=== PATIENT | male | born 1940 | race Caucasian/White ===

== ENCOUNTER 2017-04-23 06:20 | Inpatient (IN) ==
[2017-04-23] MEDS ORDERED: CeFAZolin Pre 2,000 MG/100 ML 2,000 MG/100 ML BAG IVPB ONE (06:38)
[2017-04-23] MEDS ORDERED: Ringers Solution, Lactated 1,000 ML IVC SCH ×2 (06:45→09:45)
[2017-04-23] MEDS ORDERED: *HR* FentaNYL (PF) 100 MCG/2 ML VIAL ONE (07:06)
[2017-04-23] MEDS ORDERED: *HR* Propofol 200 MG/20 ML VIAL IVP ONE ×2 (07:06→13:00)
[2017-04-23] MEDS ORDERED: *HR* Rocuronium Bromide 50 MG/5 ML VIAL ONE (07:07)
[2017-04-23] MEDS ORDERED: EPHEDrine 50 MG/ML VIAL ONE (07:07)
[2017-04-23] MEDS ORDERED: *HR* Succinylcholine 200 MG/10 ML VIAL IVP ONE (07:07)
[2017-04-23] MEDS ORDERED: Lidocaine -MPF 4% 5 ML AMPUL ONE (07:07)
[2017-04-23] MEDS ORDERED: Lidocaine -MPF 2% 2 ML VIAL ONE (07:07)
[2017-04-23] MEDS ORDERED: *HR* Phenylephrine 10 MG/ML VIAL ONE (07:07)
[2017-04-23] MEDS ORDERED: *HR* Remifentanil 1 MG VIAL IVP ONE ×2 (07:08→10:00)
[2017-04-23] MEDS ORDERED: Gabapentin 300 MG CAPSULE PO ONE (07:21)
[2017-04-23] MEDS ORDERED: Famotidine 20 MG/2 ML VIAL IVP ONE (07:21)
[2017-04-23] MEDS ORDERED: Acetaminophen IV 1,000 MG/100 ML INFUS..BTL IVPB ONE (07:21)
[2017-04-23] MEDS ORDERED: Heparin 1,000 UNITS/500 mL NS 500 ML ONE (07:39)
--- NOTE | 2017-04-23 07:39 | History & Physical Report ---
Date of Encounter: 04/23/17 Time of Encounter: 07:38 24 Hour HP Update - Instructions Instructions: If the History and Physical is less than 30 days old and was completed prior to A.M. admission and or procedure and has NOT been updated on calendar day of procedure please complete this update prior to performing procedure. - Update Patient reports changes in Medical Condition: No Changes in examination, assessment, or condition: No Changes in Medication: No Preop tests/diagnostics Reviewed: Yes Pre-Op MRSA Screen: Negative Surgery Remains Indicated: Yes Consent for Planned Operative Procedure(s) Verified: Yes - Pre-Operative Checklist Preoperative Checklist Indicated: No Prophylactic Antibiotic Ordered: Yes Home Medications Include Beta Vitaliy: Yes Beta Vitaliy Taken Today (Day of Surgery): No Beta Vitaliy Taken Yesterday (Day Prior to Surgery): Yes Is VTE Prophylaxis Indicated?: Yes
--- NOTE | 2017-04-23 07:41 | Anesthesia Evaluation PreOp ---
Date of Encounter: 04/23/17 Time of Encounter: 07:30 - Past History Planned Operation: Posterior Lumbar Interbody Fusion Cardiac History: [place] (CAD), HTN, Hyperlipidemia, Cardiac Surgery (CABG X2), Other (, PAD) Pulmonary History: Former smoker, JENNIFER Dx (non compliant with CPAP) JBOSS ARCHITECT History: TIA (s/p Left CEA) Other Medical History: Diabetes Type II, GERD Anesthesia History: Past Anesthesia, Problems (Post op temperature spike) Alcohol Use: none Drug use: none Medications and Allergies Gabapentin [Neurontin] 300 mg PO TID 06/04/15 [History] Losartan [Cozaar] 50 mg PO BID 06/04/15 [History] Metformin [Glucophage] 1,000 mg PO BIDWM 06/04/15 [History] Omeprazole [PriLOSEC] 40 mg PO DAILY 06/04/15 [History] Ubidecarenone [Co Q-10] 100 mg PO DAILY 06/04/15 [History] Acetaminophen [Tylenol Arthritis] 650 mg PO QPM 05/20/16 [History] Aspirin Enteric Coated [Aspirin EC] 81 mg PO DAILY 05/20/16 [History] Cholecalciferol (D-3) [Vitamin D] 5,000 unit PO DAILY 05/20/16 [History] Docusate [Colace] 100 mg PO BID PRN 04/14/17 [History] Glimepiride [Amaryl] 2 mg PO 0800 04/14/17 [History] Nitroglycerin 0.4 mg SL Q5MIN 04/14/17 [History] Rosuvastatin Calcium [Crestor] 10 mg PO Q48H 04/14/17 [History] Carvedilol 3.125 mg PO BID 04/23/17 [History] Lipoflavonoid 3 tab PO DAILY PRN 04/23/17 [History] Allergies ibuprofen [From Motrin] Allergy (Verified 04/23/17 07:20) Hives Oxycodone Adverse Reaction (Severe, Verified 04/23/17 07:20) See Comments suicidal ideation fish oil Adverse Reaction (Unknown, Verified 04/23/17 07:20) BRAIN BLEED atorvastatin [From Lipitor] Adverse Reaction (Verified 04/23/17 07:20) Muscle Pain Fjkfbrg-Twl-Eoa Reductase Inhibitor [Statins] Adverse Reaction (Verified 07:20) Muscle Pain - Meds/Allergy Pre-op Review Medications Reviewed: Yes Allergies Reviewed: Yes Beta Blockers on Current Med List: Yes (Coreg today 0500) Anesthesia Results - Labs Laboratory Tests 04/10/17 04/10/17 11:05 11:05 Hgb 13.2 Hct 39.0 Plt Count 260 Sodium 140 Potassium 4.4 BUN 20 Creatinine 0.99 - Imaging EKG: report reviewed (SR occ PSVT) Additional studies: Heart Cath LVEF 60% Anesthesia Exam O2 Sat Height 1.73 m Height 1.73 m Height 1.73 m Weight 92.079 kg Weight 92.079 kg Weight 92.079 kg O2 Sat by Pulse Oximetry 97 Vital Signs Temp Pulse Resp BP Pulse Ox 98.2 F 69 18 158/85 97 04/23/17 06:38 04/23/17 06:38 04/23/17 06:38 04/23/17 06:38 04/23/17 06:38 Height: 5'8 Weight: 203 lbs NPO (# of Hours): MN Pain Scale: 0 - HEENT Pupil (Motor): Pupils equal, EOMI Mallampati: III Denture Type: Upper: Complete Oral Opening: Less than or equal to 3 - JBOSS ARCHITECT LOC: Oriented JBOSS ARCHITECT Motor: Normal RUE, Normal LUE, Normal RLE, Normal LLE, Normal Face JBOSS ARCHITECT Sensory: Normal: RUE, LUE, RLE, LLE, Face - Cardiac Rhythm: Regular Murmur: None JVD: No Carotid Bruit: No - Pulmonary Breath Sounds: bilateral Clear Respiratory Effort: Symmetrical Anesthesia Assess/Plan ASA Score: 3 (CAD HTN) Modified [place] Scale for Level of Consciousness: Cooperative, oriented, and tranquil Anesthetic Plan: General Monitoring Plan: Standard Monitors, A-Line Recovery Plan: PACU (Discussed GA, A-line agrees to proceed)
[2017-04-23] MEDS ORDERED: NiCARdipine 2.5 MG/10 ML Syringe IVPB ONE (08:31)
[2017-04-23] MEDS ORDERED: Naloxone 0.4 MG/ML INJ IVP PRN ×2 (09:45→15:25)
[2017-04-23] MEDS ORDERED: *HR* Meperidine 25 MG/ML SYRINGE IVP PRN (09:45)
[2017-04-23] MEDS ORDERED: Albuterol 2.5 MG/3 ML NEBULIZER IH ONE (09:45)
[2017-04-23] MEDS ORDERED: Ondansetron 4 MG/2 ML VIAL IVP ONE (09:45)
[2017-04-23] MEDS ORDERED: Ondansetron 4 MG/2 ML VIAL ONE (10:31)
[2017-04-23] MEDS ORDERED: Dexamethasone 4 MG/ML VIAL ONE (10:31)
[2017-04-23] MEDS ORDERED: Propofol 500 MG/50 ML INFUS..BTL ONE (11:07)
--- NOTE | 2017-04-23 13:03 | Orthopedic Operative Note ---
Date of procedure: 04/23/17 Pre-op diagnosis: Spondylolisthesis, lumbar stenosis, lumbar radiculopathy Post-op diagnosis: same Operation/Findings: Posterior lumbar interbody fusion L3-S1: The patient successfully underwent general endotracheal anesthesia. The patient was given antibiotics prior to the start of the procedure. Compression boots and stockings were used for deep vein thrombosis prophylaxis. A Condon catheter was placed. Leads for neuro monitoring were placed on the upper and lower extremities. This included the cranium. The neuro monitoring personnel confirmed there were satisfactory readings prior to the start of the procedure. The patient was turned prone on the Donn table. The back was prepped and draped in the usual sterile fashion. An incision was was marked and centered over the involved L3-S1 levels in the mid line. The incision was deepened through the lumbar fascia. Bovie cautery and Wang elevators were used to reflect the paraspinal musculature at the lateral extent of the transverse processes of the involved L3 , L4, L5, and S1 levels. Yvrose clamps were placed over the L4 and L5 spinous processes. An intraoperative lateral fluorograph was obtained. A conversation was held between the surgeon and radiologist and both confirmed we had the correct operative levels. We then placed pedicle screws in standard fashion with the aid of fluoroscopy and anatomic landmarks. Briefly a starter awl was used. A gearshift was subsequently used to enter the engine pilot hole via a transpedicular route into the vertebral body. The engine pilot hole was tapped with an undersized instrument, and subsequently seven 6.5 x 40 mm pedicle screws were placed bilaterally at L2, L3, and S1 levels. One pedicle screw was placed at the L5 level due to concerns of screw placement. The screws were tested with the aid of the neurologic monitoring staff via pedicle screw stimulation. All reading suggested there was no significant cortical wall breech. The screws were also evaluated fluoro- graphically and appeared to be in satisfactory position. We then turned our attention to the decompression portion of the procedure. We removed the supraspinous and interspinous ligaments and subsequently the insertion of the ligamentum flavum on the undersurface of the proximal L5 lamina was dislodged with a curette. We then removed the ligamentum flavum as well as undercut the f L5-S1 acets at this level to decompress the lateral recesses. We also performed a L5 laminectomy. After the decompression which was over and above that which was required to place the interbody graft, the foramen and traversing roots at this level were found to be free and patent. We also took part of the L5-S1 medial facet in order to aid in the decompression. We proceeded proximally with these compression to the L4-5 and L3-4 levels. This included removing all intervening ligamentum flavum, undercutting the facets at the L3-4 and L4-5 levels, performing laminectomies of L4 and L3, and doing partial medial facetectomies at the L3-4 and L4-5 levels. We checked the foramen and traversing roots at L3-4 and L4-5 and L5-S1 and they were found to be free and patent after the decompression. We then protected the neural elements including the thecal sac and traversing nerve root on the right at L4-5 with a dural retractor. We made an annulotomy into the L4-5 disc space and then removed entire disc material using Pituitary instruments. We trialed various size grafts after the L4 and L5 endplates were prepared for graft insertion. an 8 x 26 enter body graft fit well within the L4-L5 disc space. We obtained some bone from the right posterior superior iliac spine through us a separate incision and combined with this with the bone which we had saved from the laminectomy of L3, L4, and L5 portion of the procedure. This autograft bone was first placed in the anterior portion of the L4-L5 disc space and additional bone was placed within the interbody graft spacer. We then placed the interbody graft spacer obliquely across the L4-L5 disc space towards the midline while protecting the neural elements with a root retractor. When the graft was found to be in satisfactory position the windows security engineer was removed. We then copiously irrigated the wound. We then decorticated the transverse processes of L3, L4, L5 and S1 as well as the L3-4, L4-5, and L5-S1 facet joints of the involved levels to aid in the posterolateral fusion. We placed autograft bone in the lateral gutters over these L3-S1 regions. We then placed rods within the screw heads of the involved L3, L4, L5 and S1 levels and first locked the distal screws and then subsequently locked the proximal screws so as to improve and reduce the spondylolisthesis previously seen. We then closed the wound in layers with 1 Vicryl for the fascia, 2-0 Vicryl. Subcutaneous tissue, and Dermabond was used for skin closure. Sterile dressings were placed over the wound. The patient was turned supine on a hospital bed and extubated. All sponge instruments and needle counts were correct at the end of the procedure. The patient tolerated the procedure well without complications. Anesthesia: JESSICA Surgeon: Nick Haynes Jr Estimated blood loss (cc): 900 Condition: stable Disposition: PACU
[2017-04-23] MEDS ORDERED: *HR* HYDROcodone/Acet 10/325 mg TABLET PO PRN (13:08)
[2017-04-23] MEDS: *HR* HYDROmorphone (PF) 1 MG/ML SYRINGE IVP PRN ×4 (13:25→13:45)
[2017-04-23] MEDS: *HR* Labetalol 20 MG/4 ML SYRINGE IVP PRN ×2 (13:55→14:00)
--- NOTE | 2017-04-23 14:28 | Anesthesia Evaluation Post Op ---
Date of Encounter: 04/23/17 Time of Encounter: 14:25 - Vital Signs Vital Signs: Vital Signs/O2 Sat/Glucose, Most Current Temp Pulse Resp BP Pulse Ox 04/23/17 14:23 87 16 161/91 97 04/23/17 14:13 98.2 F 83 16 166/91 97 04/23/17 14:03 63 16 161/82 97 04/23/17 13:53 93 16 182/93 97 04/23/17 13:43 98 F 93 16 174/87 98 04/23/17 13:33 94 16 162/100 96 04/23/17 13:23 96 16 157/82 95 04/23/17 13:13 98.4 F 91 16 172/106 100 - Lungs Lungs: Clear Ascult./Percussion - Airway Airway: Non-obstructed - Cardiovascular Regular Rate - Mental Status Mental Status: Alert & Oriented, Answers Appropriately - Pain Pain Scale: 1 - Nausea Vomiting Nausea Vomiting: Not Present - Hydration Hydration: Ice chips - Discharge PostOp Status: Transfer Patient to floor
[2017-04-23] MEDS ORDERED: Ondansetron 4 MG/2 ML VIAL IVP PRN (15:25)
[2017-04-23] MEDS ORDERED: Nitroglycerin 0.4 MG TAB.SUBL SL PRN (15:30)
[2017-04-23] MEDS: ceFAZolin 2,000 MG in D5% in Water 100 ML IVPB SCH (16:17)
[2017-04-23] MEDS: Ringers Solution, Lactated 1,000 ML IVC SCH (16:18)
[2017-04-23] MEDS: *HR* Metformin 500 MG TABLET PO SCH (17:17)
[2017-04-23] MEDS: Acetaminophen 325 MG TABLET PO SCH (17:17)
[2017-04-23] MEDS: *HR* HYDROcodone/Acet 10/325 mg TABLET PO PRN (19:06)
[2017-04-23] MEDS: *HR* Morphine 2 MG/ML SYRINGE IVP PRN (21:34)
[2017-04-24] MEDS: Ringers Solution, Lactated 1,000 ML IVC SCH (00:21)
[2017-04-24] MEDS: ceFAZolin 2,000 MG in D5% in Water 100 ML IVPB SCH (00:22)
[2017-04-24] MEDS: *HR* HYDROcodone/Acet 10/325 mg TABLET PO PRN ×5 (00:56→23:20)
[2017-04-24 06:13] LABS: Basophils % 0.3 %; Hematocrit 35.7 % (37.5-50.1); Hemoglobin 11.7 g/dL (12.9-16.9); Immature Granulocytes % 0.7 % (0-4); Lymphocytes # 1.5 K/mcL (0.6-4.6); Lymphocytes % 9.5 %; Mean Corpuscular HGB Conc 32.8 g/dL (31.6-35.5); Mean Corpuscular Hemoglobin 31.1 pg (28.0-33.3); Mean Corpuscular Volume 94.9 fL (83.0-100.0); Mean Platelet Volume 10.3 fL (9.4-12.4); Monocytes # 1.4 K/mcL (0.0-1.3); Neutrophils # 12.7 K/mcL (1.6-8.9); Platelet Count 250 K/mcL (140-400); Red Blood Count 3.76 M/mcL (4.19-5.50); Red Cell Distribution Width 13.7 % (11.5-14.5); Segmented Neutrophils % 80.5 %
[2017-04-24 06:51] LABS: BUN/Creatinine Ratio 14 (6-26); Blood Urea Nitrogen 14 mg/dL (8-26); Carbon Dioxide 26 mEq/L (19-29); Chloride 100 mEq/L (98-109); Glucose 224 mg/dL (70-99); Osmolality,Calculated 287 (280-300); Potassium 4.3 mEq/L (3.5-4.5); Sodium 135 mEq/L (136-145); eGFR For African Americans > 60 (> 60); eGFR For Non-African Americans > 60 (> 60)
[2017-04-24] MEDS: *HR* Metformin 500 MG TABLET PO SCH ×2 (07:34→16:48)
[2017-04-24] MEDS: *HR* Glimepiride 2 MG TABLET PO SCH (07:35)
[2017-04-24] MEDS: Aspirin Enteric Coated 81 MG Tablet PO SCH (07:36)
[2017-04-24] MEDS: Cholecalciferol (D-3) 1,000 UNIT TABLET PO SCH (07:36)
[2017-04-24] MEDS: (Ubidecarenone [Co Q-10] 100 MG) PO SCH (07:37)
--- NOTE | 2017-04-24 11:21 | Orthopedics Progress Note ---
<Dina Lopez E - Last Filed: 04/24/17 11:22> Date of Encounter: 04/24/17 Time of Encounter: 11:20 - Assessment and Plan (1) Status post lumbar spinal fusion Current Visit: Yes Status: Acute (2) Spondylolisthesis Current Visit: Yes Status: Chronic Qualifiers: Spinal region: unspecified Qualified Code(s): M43.10 - Spondylolisthesis, site unspecified (3) Lumbar stenosis Current Visit: Yes Status: Chronic (4) Lumbar radiculopathy Current Visit: Yes Status: Chronic Subjective Principal diagnosis: low back and leg pain Interval history: POD#1 Posterior lumbar interbody fusion L3-S1 performed on 04/23/[address] Haynes for Spondylolisthesis, lumbar stenosis, lumbar radiculopathy. PT recommending home with family. Objective Vital signs: Vital Signs Temp Pulse Resp BP Pulse Ox 04/24/17 11:16 98.6 F 82 14 145/78 97 04/24/17 07:04 97.5 F L 86 16 147/81 98 04/24/17 00:34 97.9 F 88 16 144/70 96 04/23/17 21:53 97.8 F 92 16 143/76 95 04/23/17 18:24 98.3 F 92 16 120/69 95 04/23/17 17:24 97.6 F 81 16 149/81 98 04/23/17 16:01 98.4 F 92 18 144/79 94 04/23/17 16:00 98.4 F 92 18 144/79 94 04/23/17 15:30 98.1 F 80 18 150/83 94 04/23/17 14:45 98.1 F 78 16 161/93 98 04/23/17 14:23 87 16 161/91 97 04/23/17 14:13 98.2 F 83 16 166/91 97 04/23/17 14:03 63 16 161/82 97 04/23/17 13:53 93 16 182/93 97 04/23/17 13:43 98 F 93 16 174/87 98 04/23/17 13:33 94 16 162/100 96 04/23/17 13:23 96 16 157/82 95 04/23/17 13:13 98.4 F 91 16 172/106 100 Intake and Output 04/23/17 04/24/17 04/24/17 23:59 07:59 15:59 Intake Total 100 / 100 1225 / 1225 480 / 480 Output Total 800 / 800 1250 / 1250 Balance -700 / -700 -25 / -25 480 / 480 Intake: IV Fluids 100 / 100 1000 / 1000 Lactated Ringers 1,000 ML 1000 / 1000 @ 100 mls/hr IVC .Q10H CHIN Rx#:[id number] Ancef 2,000 MG In 100 / 100 Dextrose 5% 100 ML @ 200 mls/hr IVPB Q8HR CHIN Rx#: [id number] Oral 225 / 225 480 / 480 Output: Catheter 800 / 800 1250 / 1250 Other: Blood Glucose* 273 232 232 - Labs CBC & BMP: 04/24/17 04:55 04/24/17 04:55 Labs: Abnormal lab results WBC 15.8 K/mcL (4.3-11.1) H 04/24/17 04:55 RBC 3.76 M/mcL (4.19-5.50) L 04/24/17 04:55 Hgb 11.7 g/dL (12.9-16.9) L 04/24/17 04:55 Hct 35.7 % (37.5-50.1) L 04/24/17 04:55 Neutrophils # 12.7 K/mcL (1.6-8.9) H 04/24/17 04:55 Monocytes # 1.4 K/mcL (0.0-1.3) H 04/24/17 04:55 Sodium 135 mEq/L (136-145) L 04/24/17 04:55 Glucose 224 mg/dL (70-99) H 04/24/17 04:55 POC Glucose 273 (58-89) H 04/23/17 20:27 - VTE Documentation of Mechanical Device: Intermittent pneumatic compression device Consult Discharge Plan - Plan Referrals: Jamir Whitfield MD [Primary Care Provider] - <Nick Haynes Jr - Last Filed: 04/24/17 12:24> Date of Encounter: 04/24/17 Subjective Interval history: The patient is without complaints. Afebrile vital signs are stable. Incision is clean dry and intact. Neurovascularly intact with regard to bilateral lower extremities. Fires all upper and lower extremity motor groups. . Assessment : stable. Plan mobilize ,continue analgesics, discharge planning. Objective Vital signs: Vital Signs Temp Pulse Resp BP Pulse Ox 04/24/17 11:16 98.6 F 82 14 145/78 97 04/24/17 07:04 97.5 F L 86 16 147/81 98 04/24/17 00:34 97.9 F 88 16 144/70 96 04/23/17 21:53 97.8 F 92 16 143/76 95 04/23/17 18:24 98.3 F 92 16 120/69 95 04/23/17 17:24 97.6 F 81 16 149/81 98 04/23/17 16:01 98.4 F 92 18 144/79 94 04/23/17 16:00 98.4 F 92 18 144/79 94 04/23/17 15:30 98.1 F 80 18 150/83 94 04/23/17 14:45 98.1 F 78 16 161/93 98 04/23/17 14:23 87 16 161/91 97 04/23/17 14:13 98.2 F 83 16 166/91 97 04/23/17 14:03 63 16 161/82 97 04/23/17 13:53 93 16 182/93 97 04/23/17 13:43 98 F 93 16 174/87 98 04/23/17 13:33 94 16 162/100 96 04/23/17 13:23 96 16 157/82 95 04/23/17 13:13 98.4 F 91 16 172/106 100 Intake and Output 04/23/17 04/24/17 04/24/17 23:59 07:59 15:59 Intake Total 100 / 100 1225 / 1225 480 / 480 Output Total 800 / 800 1250 / 1250 Balance -700 / -700 -25 / -25 480 / 480 Intake: IV Fluids 100 / 100 1000 / 1000 Lactated Ringers 1,000 ML 1000 / 1000 @ 100 mls/hr IVC .Q10H CHIN Rx#:[id number] Ancef 2,000 MG In 100 / 100 Dextrose 5% 100 ML @ 200 mls/hr IVPB Q8HR CHIN Rx#: [id number] Oral 225 / 225 480 / 480 Output: Catheter 800 / 800 1250 / 1250 Other: Blood Glucose* 273 232 232 - Labs CBC & BMP: 04/24/17 04:55 04/24/17 04:55 Labs: Abnormal lab results WBC 15.8 K/mcL (4.3-11.1) H 04/24/17 04:55 RBC 3.76 M/mcL (4.19-5.50) L 04/24/17 04:55 Hgb 11.7 g/dL (12.9-16.9) L 04/24/17 04:55 Hct 35.7 % (37.5-50.1) L 04/24/17 04:55 Neutrophils # 12.7 K/mcL (1.6-8.9) H 04/24/17 04:55 Monocytes # 1.4 K/mcL (0.0-1.3) H 04/24/17 04:55 Sodium 135 mEq/L (136-145) L 04/24/17 04:55 Glucose 224 mg/dL (70-99) H 04/24/17 04:55 POC Glucose 273 (58-89) H 04/23/17 20:27
[2017-04-24] MEDS ORDERED: Temazepam 15 MG CAPSULE PO PRN (12:38)
[2017-04-24] MEDS: *HR* Morphine 2 MG/ML SYRINGE IVP PRN ×2 (12:46→16:58)
[2017-04-24] MEDS: Acetaminophen 325 MG TABLET PO SCH (16:49)
[2017-04-24] MEDS: Gabapentin 300 MG CAPSULE PO SCH (21:12)
[2017-04-25] MEDS: *HR* HYDROcodone/Acet 10/325 mg TABLET PO PRN ×3 (05:05→16:27)
[2017-04-25] MEDS: Aspirin Enteric Coated 81 MG Tablet PO SCH (09:11)
[2017-04-25] MEDS: Cholecalciferol (D-3) 1,000 UNIT TABLET PO SCH (09:11)
[2017-04-25] MEDS: *HR* Metformin 500 MG TABLET PO SCH ×2 (09:12→16:28)
[2017-04-25] MEDS: Gabapentin 300 MG CAPSULE PO SCH ×3 (09:12→22:47)
[2017-04-25] MEDS: *HR* Glimepiride 2 MG TABLET PO SCH (09:14)
[2017-04-25] MEDS: (Ubidecarenone [Co Q-10] 100 MG) PO SCH (09:16)
--- NOTE | 2017-04-25 12:44 | Spine Progress Note ---
Date of Encounter: 04/25/17 Time of Encounter: 12:43 Subjective Principal diagnosis: low back and leg pain Interval history: The patient is without complaints. Afebrile vital signs are stable. Incision is clean dry and intact. Neurovascularly intact with regard to bilateral lower extremities. Fires all upper and lower extremity motor groups. . Assessment : stable. Plan mobilize ,continue analgesics, discharge planning, radiographs satisfactory. Objective Vital signs: Vital Signs Temp Pulse Resp BP Pulse Ox 04/25/17 10:00 98.5 F 101 16 134/76 99 04/25/17 06:51 98.4 F 104 16 129/78 98 04/25/17 04:57 98.0 F 110 14 135/74 96 04/25/17 01:11 98.8 F 107 15 112/61 04/24/17 15:20 99.5 F 100 16 113/62 96 Intake and Output 04/24/17 04/25/17 04/25/17 23:59 07:59 15:59 Intake Total 0 / 0 Balance 0 / 0 Intake: Oral 0 / 0 Other: Weight 96 kg Blood Glucose* 171 225 293 Patient Weight 04/25/17 23:59 Weight 96 kg - Labs CBC & BMP: 04/24/17 04:55 04/24/17 04:55 Labs: Abnormal lab results WBC 15.8 K/mcL (4.3-11.1) H 04/24/17 04:55 RBC 3.76 M/mcL (4.19-5.50) L 04/24/17 04:55 Hgb 11.7 g/dL (12.9-16.9) L 04/24/17 04:55 Hct 35.7 % (37.5-50.1) L 04/24/17 04:55 Neutrophils # 12.7 K/mcL (1.6-8.9) H 04/24/17 04:55 Monocytes # 1.4 K/mcL (0.0-1.3) H 04/24/17 04:55 Sodium 135 mEq/L (136-145) L 04/24/17 04:55 Glucose 224 mg/dL (70-99) H 04/24/17 04:55 POC Glucose 211 (58-89) H 04/24/17 21:00 Consult Discharge Plan - Plan Referrals: Jamir Whitfield MD [Primary Care Provider] -
--- NOTE | 2017-04-25 12:50 | Discharge Summary ---
Date of Encounter: 04/25/17 Time of Encounter: 12:44 - Discharge Medications Prescriptions: HYDROcodone/Acet 10/325 mg [[place] 10-325 mg] 1 each PO Q4HR PRN #60 tab PRN Reason: Pain Home Medications: Gabapentin [Neurontin] 300 mg PO TID 06/04/15 [History] Losartan [Cozaar] 50 mg PO BID 06/04/15 [History] Metformin [Glucophage] 1,000 mg PO BIDWM 06/04/15 [History] Omeprazole [PriLOSEC] 40 mg PO DAILY 06/04/15 [History] Ubidecarenone [Co Q-10] 100 mg PO DAILY 06/04/15 [History] Acetaminophen [Tylenol Arthritis] 650 mg PO QPM 05/20/16 [History] Aspirin Enteric Coated [Aspirin EC] 81 mg PO DAILY 05/20/16 [History] Cholecalciferol (D-3) [Vitamin D] 5,000 unit PO DAILY 05/20/16 [History] Docusate [Colace] 100 mg PO BID PRN 04/14/17 [History] Glimepiride [Amaryl] 2 mg PO 0800 04/14/17 [History] Nitroglycerin 0.4 mg SL Q5MIN 04/14/17 [History] Rosuvastatin Calcium [Crestor] 10 mg PO Q48H 04/14/17 [History] Carvedilol 3.125 mg PO BID 04/23/17 [History] Lipoflavonoid 3 tab PO DAILY PRN 04/23/17 [History] HYDROcodone/Acet 10/325 mg [[place] 10-325 mg] 1 each PO Q4HR PRN #60 tab [Rx] Allergies/Adverse Reactions: Allergies ibuprofen [From Motrin] Allergy (Verified 04/23/17 07:20) Hives Oxycodone Adverse Reaction (Severe, Verified 04/23/17 07:20) See Comments suicidal ideation fish oil Adverse Reaction (Unknown, Verified 04/23/17 07:20) BRAIN BLEED atorvastatin [From Lipitor] Adverse Reaction (Verified 04/23/17 07:20) Muscle Pain Cttuehf-Lgw-Rde Reductase Inhibitor [Statins] Adverse Reaction (Verified 07:20) Muscle Pain Labs on day of discharge: Labs from last 24 hours 04/24/17 04/24/17 04/24/17 21:00 16:37 11:19 POC Glucose 211 H 171 H 232 H 04/24/17 07:08 POC Glucose 232 H - Impressions ITS Impressions Lumbar Spine X-Ray 04/23/17 00:00 IMPRESSION: Postsurgical changes status post posterior lumbar fusion from L3-S1 without adverse features evident. D/ / 04/23/2017 14:05:13 Sanya Erickson MD / earricci Interpreting Provider: Sanya Erickson MD Lumbar Spine X-Ray 04/25/17 11:15 IMPRESSION: No postoperative complication identified status post recent L3-S1 posterior fusion. D/ / 04/25/2017 08:18:31 Giovanni Stern MD / Kassandra Roy Interpreting Provider: Giovanni Stern MD Date of admission: 04/23/17 14:43 Primary care physician: Jamir Whitfield MD Consults: 04/23/17 15:25 Consult to Occupational Therapy [CONS] Routine Comment: Evaluate, develop and implement POC Reason for Consult: Postoperative Consult to Physical Therapy [CONS] Routine Comment: Evaluate, develop and implement POC Reason for Consult: Postoperative Consult to Eligibility Analyst [CONS] Routine Reason for SW Consult: Postoperative rehabilitation Consult to Spine Navigator [CONS] [CONS] Routine - Patient Status Disposition: Home, Self-Care Condition: Good Functional capacity at discharge: independent ambulation Overall status at discharge: patient is progressing back to baseline - Discharge Instructions Follow Up With: Jamir Whitfield MD [Primary Care Provider] - - Diet and Activity Activity: as per physical therapy Diet: advance to your usual diet - Hospital Course Hospital course: Mr. Shoemaker is a 77 year old male The patient had an uneventful postoperative course. Progressed from intravenous analgesic needs to oral analgesic needs only. Remained neurovascularly intact and mobilized satisfactorily. All intraoperative and/or postoperative radiographic studies were satisfactory. Patient is discharged with plan for rehabilitation and follow-up in 2 weeks post discharge on analgesic medication and patient's home medications. - Time Spent with Patient Total time spent providing and/or coordinating discharge services: - VTE Documentation of Mechanical Device: Intermittent pneumatic compression device
[2017-04-25] MEDS: Acetaminophen 325 MG TABLET PO SCH (16:29)
[2017-04-26] MEDS: *HR* HYDROcodone/Acet 10/325 mg TABLET PO PRN ×2 (02:09→12:25)
--- NOTE | 2017-04-26 07:55 | Orthopedics Progress Note ---
Date of Encounter: 04/26/17 Time of Encounter: 07:55 Subjective Principal diagnosis: low back and leg pain Interval history: Patient seen this morning sitting in chair wearing brace doing well. Bilateral lower extremity feet and toes points of pain distally. Patient will be discharged today Objective Vital signs: Vital Signs Temp Pulse Resp BP Pulse Ox 04/26/17 06:34 97.9 F 104 16 123/77 96 04/26/17 00:26 98.2 F 100 17 118/75 95 04/25/17 21:39 98.6 F 103 18 124/77 95 04/25/17 15:34 99.1 F 106 18 136/71 98 04/25/17 10:00 98.5 F 101 16 134/76 99 Intake and Output 04/25/17 04/25/17 04/26/17 15:59 23:59 07:59 Intake Total 300 / 300 350 / 350 250 / 250 Output Total 450 / 450 400 / 400 Balance -150 / -150 350 / 350 -150 / -150 Intake: Oral 300 / 300 350 / 350 250 / 250 Output: Urine 450 / 450 400 / 400 Other: Meal Lunch Dinner Percent of Meal Consumed 40% 25% Weight 95.1 kg Blood Glucose* 293 155 213 Patient Weight 04/26/17 23:59 Weight 95.1 kg - Labs CBC & BMP: 04/24/17 04:55 04/24/17 04:55 Labs: Abnormal lab results WBC 15.8 K/mcL (4.3-11.1) H 04/24/17 04:55 RBC 3.76 M/mcL (4.19-5.50) L 04/24/17 04:55 Hgb 11.7 g/dL (12.9-16.9) L 04/24/17 04:55 Hct 35.7 % (37.5-50.1) L 04/24/17 04:55 Neutrophils # 12.7 K/mcL (1.6-8.9) H 04/24/17 04:55 Monocytes # 1.4 K/mcL (0.0-1.3) H 04/24/17 04:55 Sodium 135 mEq/L (136-145) L 04/24/17 04:55 Glucose 224 mg/dL (70-99) H 04/24/17 04:55 POC Glucose 213 (58-89) H 04/26/17 07:31 - VTE Documentation of Mechanical Device: Intermittent pneumatic compression device Consult Discharge Plan - Plan Referrals: Jamir Whitfield MD [Primary Care Provider] - Prescriptions: HYDROcodone/Acet 10/325 mg [[place] 10-325 mg] 1 each PO Q4HR PRN #60 tab PRN Reason: Pain
[2017-04-26] MEDS: *HR* Glimepiride 2 MG TABLET PO SCH (10:04)
[2017-04-26] MEDS: *HR* Metformin 500 MG TABLET PO SCH (10:04)
[2017-04-26] MEDS: Cholecalciferol (D-3) 1,000 UNIT TABLET PO SCH (10:04)
[2017-04-26] MEDS: Aspirin Enteric Coated 81 MG Tablet PO SCH (10:04)
[2017-04-26] MEDS: Gabapentin 300 MG CAPSULE PO SCH (10:04)
[2017-04-26 11:16] VITALS: BP 129/73
== END 2017-04-26 13:48 | disposition home or self-care (01) | DRG 460 ==
LOC: SAMDAY 06:20 → 3NENU 14:43
PROVIDERS: ADMIT Orthopaedic Surgery Orthopaedic Surgery of the Spine; ATTEND Orthopaedic Surgery Orthopaedic Surgery of the Spine

== ENCOUNTER 2020-05-09 02:39 | Inpatient (IN) ==
[2020-05-09] MEDS ORDERED: Naloxone 0.4 MG/ML INJ IVP PRN (06:05)
[2020-05-09] MEDS ORDERED: *HR* Dextrose 50 % in Water (Vial) 50 ML VIAL IVP PRN (06:27)
[2020-05-09] MEDS ORDERED: Dextrose Gel 15 GM/37.5 ML TUBE PO PRN ×2 (06:27)
[2020-05-09] MEDS ORDERED: D5% in Water 1,000 ML IVC PRN (06:27)
[2020-05-09 07:26] LABS: Hematocrit 40.3 % (37.5-50.1); Hemoglobin 13.4 g/dL (12.9-16.9); Mean Corpuscular HGB Conc 33.3 g/dL (31.6-35.5); Mean Corpuscular Hemoglobin 32.1 pg (28.0-33.3); Mean Corpuscular Volume 96.4 fL (83.0-100.0); Mean Platelet Volume 9.8 fL (9.4-12.4); Platelet Count 152 K/mcL (140-400); Red Blood Count 4.18 M/mcL (4.19-5.50); Red Cell Distribution Width 12.2 % (11.5-14.5); White Blood Count 7.4 K/mcL (4.3-11.1)
[2020-05-09 07:44] LABS: BUN/Creatinine Ratio 19 (6-26); Blood Urea Nitrogen 19 mg/dL (8-23); Calcium 7.8 mg/dL (8.6-10.3); Carbon Dioxide 23 mEq/L (23-29); Chloride 99 mEq/L (98-107); Glucose 174 mg/dL (70-105); Magnesium 1.5 mg/dL (1.6-2.6); Osmolality,Calculated 282 (280-300); Potassium 3.7 mEq/L (3.5-5.1); Sodium 133 mEq/L (136-145); eGFR For African Americans > 60 (> 60); eGFR For Non-African Americans > 60 (> 60)
[2020-05-09 09:46] LABS: C-Reactive Protein 57 mg/L (Less than 10)
[2020-05-09 10:05] LABS: Ferritin 416 ng/mL (20-250)
[2020-05-09] MEDS: Dexamethasone 4 MG/ML VIAL IVP SCH (11:54)
[2020-05-09] MEDS: Gabapentin 300 MG CAPSULE PO SCH ×3 (11:55→19:40)
[2020-05-09] MEDS: Aspirin Enteric Coated 81 MG Tablet PO SCH (11:55)
[2020-05-09] MEDS: Furosemide 20 MG/2 ML VIAL IVP SCH (11:55)
[2020-05-09] MEDS: *HR* Enoxaparin 40 MG/0.4 ML SYRINGE SQ SCH (11:56)
[2020-05-09] MEDS: carvediloL 6.25 MG TABLET PO SCH ×2 (11:58→16:43)
[2020-05-09] MEDS: Insulin DETEMIR 100 UNIT/ML X5UNITS SQ SCH (11:59)
[2020-05-09] MEDS: Insulin LISPRO 300 UNITS/3 ML VIAL SQ SCH ×4 (12:45→19:42)
[2020-05-09] MEDS ORDERED: Furosemide 20 MG/2 ML VIAL IVP ONE (17:44)
[2020-05-09] MEDS ORDERED: *HR* Heparin 5,000 UNIT/ML VIAL SQ SCH (18:00)
[2020-05-10 06:32] LABS: Hematocrit 40.7 % (37.5-50.1); Hemoglobin 13.8 g/dL (12.9-16.9); Mean Corpuscular HGB Conc 33.9 g/dL (31.6-35.5); Mean Corpuscular Hemoglobin 31.9 pg (28.0-33.3); Mean Corpuscular Volume 94.2 fL (83.0-100.0); Mean Platelet Volume 9.8 fL (9.4-12.4); Platelet Count 215 K/mcL (140-400); Red Blood Count 4.32 M/mcL (4.19-5.50); Red Cell Distribution Width 12.1 % (11.5-14.5); White Blood Count 10.9 K/mcL (4.3-11.1)
[2020-05-10 06:35] LABS: INR 1.1; Prothrombin Time 12.1 Seconds (9.4-12.1)
[2020-05-10 07:59] LABS: BUN/Creatinine Ratio 28 (6-26); Blood Urea Nitrogen 30 mg/dL (8-23); Calcium 8.1 mg/dL (8.6-10.3); Carbon Dioxide 23 mEq/L (23-29); Chloride 101 mEq/L (98-107); Ferritin 515 ng/mL (20-250); Glucose 165 mg/dL (70-105); Magnesium 2.1 mg/dL (1.6-2.6); Osmolality,Calculated 290 (280-300); Potassium 3.9 mEq/L (3.5-5.1); Sodium 135 mEq/L (136-145); eGFR For African Americans > 60 (> 60); eGFR For Non-African Americans > 60 (> 60)
[2020-05-10] MEDS: Furosemide 20 MG/2 ML VIAL IVP SCH (10:43)
[2020-05-10] MEDS: Dexamethasone 4 MG/ML VIAL IVP SCH (10:43)
[2020-05-10] MEDS: Azithromycin 500 MG in 0.9 % Sodium Chloride 250 ML IVPB SCH (10:44)
[2020-05-10] MEDS: cefTRIAXone 2,000 MG in Water for inj. (sterile) 20 ML IVP SCH (10:45)
[2020-05-10] MEDS: Aspirin Enteric Coated 81 MG Tablet PO SCH (10:46)
[2020-05-10] MEDS: carvediloL 6.25 MG TABLET PO SCH ×2 (10:46→16:37)
[2020-05-10] MEDS: *HR* Enoxaparin 40 MG/0.4 ML SYRINGE SQ SCH (10:46)
[2020-05-10] MEDS: Gabapentin 300 MG CAPSULE PO SCH ×3 (10:46→20:42)
[2020-05-10] MEDS: Insulin DETEMIR 100 UNIT/ML X5UNITS SQ SCH (10:50)
[2020-05-10] MEDS: Insulin LISPRO 300 UNITS/3 ML VIAL SQ SCH ×4 (10:51→22:48)
[2020-05-10 11:25] LABS: C-Reactive Protein 40 mg/L (Less than 10)
[2020-05-10] MEDS: Ipratropium 1 PUFF INHALER IH SCH ×3 (16:05→23:26)
[2020-05-10 16:37] LABS: Troponin I 0.03 ng/mL (< 0.04)
[2020-05-10] MEDS: *HR* LORazepam 2 MG/ML VIAL IVP PRN (16:37)
[2020-05-10 17:14] LABS: Albumin 3.6 g/dL (3.5-5.7); Albumin/Globulin Ratio 1.3 (1.1-2.2); Bilirubin,Direct 0.1 mg/dL (0.0-0.2); Bilirubin,Indirect 0.4 mg/dL (0.0-1.0); Bilirubin,Total 0.5 mg/dL (0.3-1.0); Globulin 2.8 g/dL (2.4-3.5); Total Protein 6.4 g/dL (6.4-8.9)
[2020-05-10] MEDS ORDERED: Remdesivir 200 MG in 0.9 % Sodium Chloride 210 ML IVPB ONE (21:00)
[2020-05-11 01:09] LABS: ABG Base Excess 1 mEq/L (-2 to 3); ABG HCO3 24 mEq/L (21-27); ABG Oxygen Saturation 94 % (95-98); ABG PCO2 34 mmHg (35-45); ABG PH 7.46 pH Units (7.32-7.45); ABG PO2 66 mmHg (85-104); ABG TCO2 25 mEq/L (20-26)
[2020-05-11] MEDS: *HR* LORazepam 2 MG/ML VIAL IVP PRN (01:10)
[2020-05-11] MEDS: Ipratropium 1 PUFF INHALER IH SCH ×6 (03:17→23:48)
[2020-05-11 05:33] LABS: Hematocrit 40.9 % (37.5-50.1); Hemoglobin 13.6 g/dL (12.9-16.9); Mean Corpuscular HGB Conc 33.3 g/dL (31.6-35.5); Mean Corpuscular Hemoglobin 32.1 pg (28.0-33.3); Mean Corpuscular Volume 96.5 fL (83.0-100.0); Mean Platelet Volume 9.8 fL (9.4-12.4); Platelet Count 242 K/mcL (140-400); Red Blood Count 4.24 M/mcL (4.19-5.50); Red Cell Distribution Width 12.4 % (11.5-14.5); White Blood Count 8.9 K/mcL (4.3-11.1)
[2020-05-11 05:35] LABS: INR 1.1; Prothrombin Time 12.9 Seconds (9.4-12.1)
[2020-05-11 05:48] LABS: Alanine Aminotransferase 28 Units/L (7-52); Albumin 3.5 g/dL (3.5-5.7); Albumin/Globulin Ratio 1.2 (1.1-2.2); Alkaline Phosphatase 47 Units/L (34-104); Aspartate Amino Transferase 43 Units/L (13-39); BUN/Creatinine Ratio 27 (6-26); Bilirubin,Total 0.6 mg/dL (0.3-1.0); Blood Urea Nitrogen 32 mg/dL (8-23); Calcium 7.7 mg/dL (8.6-10.3); Carbon Dioxide 23 mEq/L (23-29); Chloride 101 mEq/L (98-107); Globulin 2.9 g/dL (2.4-3.5); Glucose 121 mg/dL (70-105); Osmolality,Calculated 290 (280-300); Potassium 3.7 mEq/L (3.5-5.1); Sodium 136 mEq/L (136-145); Total Protein 6.4 g/dL (6.4-8.9); eGFR For African Americans > 60 (> 60); eGFR For Non-African Americans 59 (> 60)
[2020-05-11] MEDS: Insulin LISPRO 300 UNITS/3 ML VIAL SQ SCH ×4 (07:33→21:40)
[2020-05-11] MEDS: Insulin DETEMIR 100 UNIT/ML X5UNITS SQ SCH (08:20)
[2020-05-11] MEDS: carvediloL 6.25 MG TABLET PO SCH ×2 (08:36→15:31)
[2020-05-11] MEDS: Aspirin Enteric Coated 81 MG Tablet PO SCH (08:37)
[2020-05-11] MEDS: Gabapentin 300 MG CAPSULE PO SCH ×3 (08:37→20:13)
[2020-05-11] MEDS ORDERED: Haloperidol Lactate 5 MG/ML VIAL IVP ONE (11:07)
[2020-05-11] MEDS ORDERED: Ringers Solution, Lactated 1,000 ML ONE (11:23)
[2020-05-11] MEDS ORDERED: Midazolam HCl 50 MG/100 ML IV.SOLN IVC SCH (12:00)
[2020-05-11] MEDS: Furosemide 20 MG/2 ML VIAL IVP SCH (12:59)
[2020-05-11] MEDS: Dexamethasone 4 MG/ML VIAL IVP SCH (12:59)
[2020-05-11] MEDS: cefTRIAXone 2,000 MG in Water for inj. (sterile) 20 ML IVP SCH (12:59)
[2020-05-11] MEDS: *HR* Enoxaparin 40 MG/0.4 ML SYRINGE SQ SCH (13:00)
[2020-05-11] MEDS: Dexmedetomidine HCl 400 MCG/100 ML MLS IVC SCH ×2 (13:00→18:35)
[2020-05-11] MEDS: FentaNYL (PF) 1,000 MCG/100 ML IV.SOLN IVC SCH ×2 (13:03→23:27)
[2020-05-11] MEDS: Azithromycin 500 MG in 0.9 % Sodium Chloride 250 ML IVPB SCH (13:07)
[2020-05-11] MEDS: Midazolam HCl 50 MG/100 ML IV.SOLN IVC SCH (13:07)
[2020-05-11] MEDS: Cisatracurium 200 MG in 0.9 % Sodium Chloride 180 ML IVC SCH (13:09)
[2020-05-11 13:47] LABS: ABG Base Excess -1 mEq/L (-2 to 3); ABG HCO3 30 mEq/L (21-27); ABG Oxygen Saturation 91 % (95-98); ABG PCO2 79 mmHg (35-45); ABG PH 7.18 pH Units (7.32-7.45); ABG PO2 78 mmHg (85-104); ABG TCO2 32 mEq/L (20-26); Blood Gas Modality ASSIST CONTROL; Blood Gas VT 450 cc
[2020-05-11 15:34] LABS: ABG Base Excess -1 mEq/L (-2 to 3); ABG HCO3 28 mEq/L (21-27); ABG Oxygen Saturation 94 % (95-98); ABG PCO2 63 mmHg (35-45); ABG PH 7.25 pH Units (7.32-7.45); ABG PO2 84 mmHg (85-104); ABG TCO2 30 mEq/L (20-26); Blood Gas Modality ASSIST CONTROL; Blood Gas VT 500 cc
[2020-05-11] MEDS: Piperacillin/Tazobactam 3.375 GM in 0.9 % Sodium Chloride Mini Bag 100 ML IVPB SCH ×2 (16:55→23:10)
[2020-05-11] MEDS: Norepinephrine 4 MG/254 ML IV.SOLN IVC SCH (16:55)
[2020-05-11] MEDS ORDERED: Artificial Tears SOLN 15 ML BOTTLE BOTH EYES PRN (20:00)
[2020-05-11] MEDS: Chlorhexidine Rinse 15 ML MOUTHWASH MM SCH (20:12)
[2020-05-11] MEDS: Artificial Tears SOLN 15 ML BOTTLE BOTH EYES SCH ×3 (20:27→23:26)
[2020-05-11 20:28] LABS: ABG Base Excess -3 mEq/L (-2 to 3); ABG HCO3 25 mEq/L (21-27); ABG Oxygen Saturation 94 % (95-98); ABG PCO2 59 mmHg (35-45); ABG PH 7.24 pH Units (7.32-7.45); ABG PO2 87 mmHg (85-104); ABG TCO2 27 mEq/L (20-26); Blood Gas Modality AF; Blood Gas VT 500 cc
[2020-05-11 20:40] LABS: Basophils % 0.1 %; Hematocrit 41.8 % (37.5-50.1); Hemoglobin 13.3 g/dL (12.9-16.9); Immature Granulocytes % 1.1 % (0-4); Lymphocytes # 0.4 K/mcL (0.6-4.6); Lymphocytes % 2.7 %; Mean Corpuscular HGB Conc 31.8 g/dL (31.6-35.5); Mean Corpuscular Volume 100.7 fL (83.0-100.0); Mean Platelet Volume 9.4 fL (9.4-12.4); Monocytes # 0.8 K/mcL (0.0-1.3); Monocytes % 4.9 %; Neutrophils # 14.6 K/mcL (1.6-8.9); Platelet Count 309 K/mcL (140-400); Red Blood Count 4.15 M/mcL (4.19-5.50); Red Cell Distribution Width 12.8 % (11.5-14.5); Segmented Neutrophils % 91.2 %
[2020-05-11] MEDS ORDERED: Remdesivir 100 MG in 0.9 % Sodium Chloride 230 ML IVPB SCH (21:00)
[2020-05-11 21:09] LABS: Calcium 7.5 mg/dL (8.6-10.3); Potassium 4.9 mEq/L (3.5-5.1)
[2020-05-11] MEDS: Remdesivir 100 MG in 0.9 % Sodium Chloride 230 ML IVPB SCH (21:41)
[2020-05-12] MEDS: Norepinephrine 4 MG/254 ML IV.SOLN IVC SCH ×2 (01:15→15:37)
[2020-05-12] MEDS: Ipratropium 1 PUFF INHALER IH SCH ×6 (03:30→23:34)
[2020-05-12] MEDS: Artificial Tears SOLN 15 ML BOTTLE BOTH EYES SCH ×6 (03:45→23:34)
[2020-05-12 03:47] LABS: ABG Base Excess -2 mEq/L (-2 to 3); ABG HCO3 25 mEq/L (21-27); ABG Oxygen Saturation 91 % (95-98); ABG PCO2 55 mmHg (35-45); ABG PH 7.27 pH Units (7.32-7.45); ABG PO2 72 mmHg (85-104); ABG TCO2 27 mEq/L (20-26); Blood Gas Modality ASSIST CONTROL; Blood Gas VT 500 cc
[2020-05-12] MEDS: Cisatracurium 200 MG in 0.9 % Sodium Chloride 180 ML IVC SCH ×2 (04:17→20:00)
[2020-05-12 05:33] LABS: Hematocrit 40.8 % (37.5-50.1); Hemoglobin 13.2 g/dL (12.9-16.9); Mean Corpuscular HGB Conc 32.4 g/dL (31.6-35.5); Mean Platelet Volume 9.4 fL (9.4-12.4); Platelet Count 270 K/mcL (140-400); Red Cell Distribution Width 12.9 % (11.5-14.5); White Blood Count 12.8 K/mcL (4.3-11.1)
[2020-05-12 05:38] LABS: INR 1.2; Prothrombin Time 13.8 Seconds (9.4-12.1)
[2020-05-12 05:53] LABS: Alanine Aminotransferase 26 Units/L (7-52); Albumin 3.2 g/dL (3.5-5.7); Albumin/Globulin Ratio 1.2 (1.1-2.2); Alkaline Phosphatase 46 Units/L (34-104); Aspartate Amino Transferase 31 Units/L (13-39); BUN/Creatinine Ratio 28 (6-26); Bilirubin,Total 0.4 mg/dL (0.3-1.0); Blood Urea Nitrogen 39 mg/dL (8-23); Calcium 7.5 mg/dL (8.6-10.3); Carbon Dioxide 25 mEq/L (23-29); Chloride 105 mEq/L (98-107); Globulin 2.6 g/dL (2.4-3.5); Glucose 197 mg/dL (70-105); Osmolality,Calculated 305 (280-300); Potassium 4.8 mEq/L (3.5-5.1); Sodium 140 mEq/L (136-145); Total Protein 5.8 g/dL (6.4-8.9); eGFR For African Americans > 60 (> 60); eGFR For Non-African Americans 50 (> 60)
[2020-05-12 05:55] LABS: C-Reactive Protein 64 mg/L (Less than 10); Lactate Dehydrogenase 461 Units/L (140-271)
[2020-05-12 06:13] LABS: Ferritin 728 ng/mL (20-250)
[2020-05-12] MEDS: Piperacillin/Tazobactam 3.375 GM in 0.9 % Sodium Chloride Mini Bag 100 ML IVPB SCH ×3 (07:38→23:35)
[2020-05-12] MEDS: Chlorhexidine Rinse 15 ML MOUTHWASH MM SCH ×2 (07:39→19:18)
[2020-05-12] MEDS: Dexamethasone 4 MG/ML VIAL IVP SCH (07:39)
[2020-05-12] MEDS: *HR* Enoxaparin 40 MG/0.4 ML SYRINGE SQ SCH (07:40)
[2020-05-12] MEDS: Azithromycin 500 MG in 0.9 % Sodium Chloride 250 ML IVPB SCH (07:43)
[2020-05-12] MEDS ORDERED: *HR* Heparin 5,000 UNIT/ML VIAL IVP PRN ×2 (08:29)
[2020-05-12] MEDS: FentaNYL (PF) 1,000 MCG/100 ML IV.SOLN IVC SCH ×3 (08:36→22:30)
[2020-05-12] MEDS ORDERED: *HR* Dextrose 50 % in Water (Vial) 50 ML VIAL IVP PRN (08:56)
[2020-05-12] MEDS ORDERED: D5% in Water 1,000 ML IVC PRN (08:56)
[2020-05-12] MEDS ORDERED: Dextrose Gel 15 GM/37.5 ML TUBE PO PRN ×2 (08:56)
[2020-05-12] MEDS ORDERED: Furosemide 40 MG/4 ML VIAL IVP SCH (09:00)
[2020-05-12] MEDS: Aspirin 81 MG TAB.CHEW PO SCH (09:39)
[2020-05-12] MEDS: Pantoprazole 40 MG VIAL IVP SCH ×2 (09:39→19:18)
[2020-05-12] MEDS: Dexmedetomidine HCl 400 MCG/100 ML MLS IVC SCH (10:28)
[2020-05-12] MEDS: Heparin 25,000 UNIT/250 ML D5W 25,000 UNIT/250 ML IV.SOLN IVC SCH (10:31)
[2020-05-12] MEDS: Insulin LISPRO 300 UNITS/3 ML VIAL SQ SCH ×3 (12:12→23:34)
[2020-05-12] MEDS: Midazolam HCl 50 MG/100 ML IV.SOLN IVC SCH (17:07)
[2020-05-12] MEDS: Acetaminophen 325 MG TABLET PO PRN (20:19)
[2020-05-12] MEDS: Remdesivir 100 MG in 0.9 % Sodium Chloride 230 ML IVPB SCH (21:09)
[2020-05-13] MEDS: Ipratropium 1 PUFF INHALER IH SCH ×6 (03:43→23:53)
[2020-05-13] MEDS: Artificial Tears SOLN 15 ML BOTTLE BOTH EYES SCH ×6 (03:47→23:53)
[2020-05-13 04:11] LABS: Hematocrit 41.4 % (37.5-50.1); Hemoglobin 12.9 g/dL (12.9-16.9); Mean Corpuscular HGB Conc 31.2 g/dL (31.6-35.5); Mean Corpuscular Hemoglobin 31.8 pg (28.0-33.3); Mean Platelet Volume 9.4 fL (9.4-12.4); Platelet Count 288 K/mcL (140-400); Red Blood Count 4.06 M/mcL (4.19-5.50); Red Cell Distribution Width 12.8 % (11.5-14.5); White Blood Count 12.3 K/mcL (4.3-11.1)
[2020-05-13 04:20] LABS: INR 1.3; Prothrombin Time 14.4 Seconds (9.4-12.1)
[2020-05-13 04:25] LABS: ABG Base Excess 0 mEq/L (-2 to 3); ABG HCO3 27 mEq/L (21-27); ABG Oxygen Saturation 91 % (95-98); ABG PCO2 52 mmHg (35-45); ABG PH 7.33 pH Units (7.32-7.45); ABG PO2 66 mmHg (85-104); ABG TCO2 29 mEq/L (20-26); Blood Gas Modality ASSIST CONTROL; Blood Gas VT 500 cc
[2020-05-13 04:30] LABS: Alanine Aminotransferase 19 Units/L (7-52); Albumin/Globulin Ratio 1.2 (1.1-2.2); Alkaline Phosphatase 42 Units/L (34-104); Aspartate Amino Transferase 21 Units/L (13-39); BUN/Creatinine Ratio 35 (6-26); Bilirubin,Total 0.5 mg/dL (0.3-1.0); Blood Urea Nitrogen 41 mg/dL (8-23); Calcium 7.7 mg/dL (8.6-10.3); Carbon Dioxide 26 mEq/L (23-29); Chloride 108 mEq/L (98-107); Globulin 2.6 g/dL (2.4-3.5); Glucose 286 mg/dL (70-105); Osmolality,Calculated 315 (280-300); Potassium 4.6 mEq/L (3.5-5.1); Sodium 142 mEq/L (136-145); Total Protein 5.6 g/dL (6.4-8.9); eGFR For African Americans > 60 (> 60); eGFR For Non-African Americans > 60 (> 60)
[2020-05-13] MEDS: FentaNYL (PF) 1,000 MCG/100 ML IV.SOLN IVC SCH (05:37)
[2020-05-13] MEDS: Heparin 25,000 UNIT/250 ML D5W 25,000 UNIT/250 ML IV.SOLN IVC SCH ×2 (05:38→09:32)
[2020-05-13] MEDS: Insulin LISPRO 300 UNITS/3 ML VIAL SQ SCH ×4 (05:48→23:53)
[2020-05-13] MEDS: Dexmedetomidine HCl 400 MCG/100 ML MLS IVC SCH ×2 (07:44→21:27)
[2020-05-13] MEDS: Piperacillin/Tazobactam 3.375 GM in 0.9 % Sodium Chloride Mini Bag 100 ML IVPB SCH ×3 (07:45→23:54)
[2020-05-13] MEDS: Pantoprazole 40 MG VIAL IVP SCH ×2 (07:45→19:35)
[2020-05-13] MEDS: Dexamethasone 4 MG/ML VIAL IVP SCH (07:46)
[2020-05-13] MEDS: Aspirin 81 MG TAB.CHEW PO SCH (07:46)
[2020-05-13] MEDS: Chlorhexidine Rinse 15 ML MOUTHWASH MM SCH ×2 (07:46→19:35)
[2020-05-13] MEDS ORDERED: Dextrose Gel 15 GM/37.5 ML TUBE PO PRN ×2 (08:29)
[2020-05-13] MEDS ORDERED: D5% in Water 1,000 ML IVC PRN (08:29)
[2020-05-13] MEDS ORDERED: *HR* Dextrose 50 % in Water (Vial) 50 ML VIAL IVP PRN (08:29)
[2020-05-13] MEDS: Insulin DETEMIR 100 UNIT/ML X5UNITS SQ SCH (09:32)
[2020-05-13] MEDS: Cisatracurium 200 MG in 0.9 % Sodium Chloride 180 ML IVC SCH (09:51)
[2020-05-13] MEDS: Midazolam HCl 50 MG/100 ML IV.SOLN IVC SCH (10:52)
[2020-05-13] MEDS ORDERED: FentaNYL (PF) 2,500 MCG/50 ML IV.SOLN IVC SCH (11:00)
[2020-05-13] MEDS ORDERED: 0.9 % Sodium Chloride 500 ML ONE (11:24)
[2020-05-13] MEDS: FentaNYL (PF) 2,500 MCG/50 ML IV.SOLN IVC SCH (15:45)
[2020-05-13] MEDS: Remdesivir 100 MG in 0.9 % Sodium Chloride 230 ML IVPB SCH (21:23)
[2020-05-14] MEDS: Midazolam HCl 50 MG/100 ML IV.SOLN IVC SCH ×2 (00:24→07:36)
[2020-05-14] MEDS: FentaNYL (PF) 2,500 MCG/50 ML IV.SOLN IVC SCH ×3 (01:37→19:33)
[2020-05-14] MEDS: Ipratropium 1 PUFF INHALER IH SCH ×5 (03:46→19:22)
[2020-05-14 04:24] LABS: Hematocrit 36.7 % (37.5-50.1); Mean Corpuscular HGB Conc 30.8 g/dL (31.6-35.5); Mean Corpuscular Hemoglobin 31.8 pg (28.0-33.3); Mean Corpuscular Volume 103.4 fL (83.0-100.0); Mean Platelet Volume 9.5 fL (9.4-12.4); Platelet Count 293 K/mcL (140-400); Red Blood Count 3.55 M/mcL (4.19-5.50); Red Cell Distribution Width 12.7 % (11.5-14.5)
[2020-05-14 04:25] LABS: ABG Base Excess 1 mEq/L (-2 to 3); ABG HCO3 28 mEq/L (21-27); ABG Oxygen Saturation 84 % (95-98); ABG PCO2 56 mmHg (35-45); ABG PH 7.31 pH Units (7.32-7.45); ABG PO2 55 mmHg (85-104); ABG TCO2 30 mEq/L (20-26); Blood Gas Modality ASSIST CONTROL; Blood Gas VT 400 cc
[2020-05-14 04:26] LABS: Hemoglobin 11.3 g/dL (12.9-16.9)
[2020-05-14 04:29] LABS: INR 1.2; Prothrombin Time 13.1 Seconds (9.4-12.1)
[2020-05-14] MEDS: Artificial Tears SOLN 15 ML BOTTLE BOTH EYES SCH ×6 (04:35→23:16)
[2020-05-14 04:46] LABS: Alanine Aminotransferase 15 Units/L (7-52); Albumin 2.9 g/dL (3.5-5.7); Albumin/Globulin Ratio 1.2 (1.1-2.2); Alkaline Phosphatase 44 Units/L (34-104); Aspartate Amino Transferase 15 Units/L (13-39); BUN/Creatinine Ratio 33 (6-26); Bilirubin,Total 0.4 mg/dL (0.3-1.0); Blood Urea Nitrogen 40 mg/dL (8-23); Calcium 7.6 mg/dL (8.6-10.3); Carbon Dioxide 29 mEq/L (23-29); Chloride 110 mEq/L (98-107); Globulin 2.5 g/dL (2.4-3.5); Glucose 360 mg/dL (70-105); Osmolality,Calculated 322 (280-300); Potassium 4.7 mEq/L (3.5-5.1); Sodium 144 mEq/L (136-145); Total Protein 5.4 g/dL (6.4-8.9); eGFR For African Americans > 60 (> 60); eGFR For Non-African Americans 58 (> 60)
[2020-05-14] MEDS: Insulin LISPRO 300 UNITS/3 ML VIAL SQ SCH ×4 (05:48→23:37)
[2020-05-14] MEDS: Piperacillin/Tazobactam 3.375 GM in 0.9 % Sodium Chloride Mini Bag 100 ML IVPB SCH ×3 (07:33→23:16)
[2020-05-14] MEDS: Insulin DETEMIR 100 UNIT/ML X5UNITS SQ SCH (07:34)
[2020-05-14] MEDS: Chlorhexidine Rinse 15 ML MOUTHWASH MM SCH ×2 (07:34→19:33)
[2020-05-14] MEDS: Aspirin 81 MG TAB.CHEW PO SCH (07:34)
[2020-05-14] MEDS: Dexamethasone 4 MG/ML VIAL IVP SCH (07:34)
[2020-05-14] MEDS: Pantoprazole 40 MG VIAL IVP SCH ×2 (07:35→19:33)
[2020-05-14] MEDS: Norepinephrine 4 MG/254 ML IV.SOLN IVC SCH (12:18)
[2020-05-14] MEDS: Remdesivir 100 MG in 0.9 % Sodium Chloride 230 ML IVPB SCH (21:36)
[2020-05-14] MEDS ORDERED: 0.9 % Sodium Chloride 500 ML ONE (22:40)
[2020-05-15] MEDS: Ipratropium 1 PUFF INHALER IH SCH ×7 (00:03→23:52)
[2020-05-15] MEDS: Artificial Tears SOLN 15 ML BOTTLE BOTH EYES SCH ×6 (04:00→23:21)
[2020-05-15] MEDS: Heparin 25,000 UNIT/250 ML D5W 25,000 UNIT/250 ML IV.SOLN IVC SCH ×2 (04:01→23:20)
[2020-05-15 04:08] LABS: ABG Base Excess 3 mEq/L (-2 to 3); ABG HCO3 31 mEq/L (21-27); ABG Oxygen Saturation 84 % (95-98); ABG PCO2 62 mmHg (35-45); ABG PO2 55 mmHg (85-104); ABG TCO2 33 mEq/L (20-26)
[2020-05-15] MEDS: FentaNYL (PF) 2,500 MCG/50 ML IV.SOLN IVC SCH ×3 (04:36→23:20)
[2020-05-15 04:39] LABS: Basophils % 0.1 %; Hematocrit 36.8 % (37.5-50.1); Hemoglobin 11.2 g/dL (12.9-16.9); Immature Granulocytes % 1.6 % (0-4); Lymphocytes # 0.6 K/mcL (0.6-4.6); Mean Corpuscular HGB Conc 30.4 g/dL (31.6-35.5); Mean Corpuscular Hemoglobin 32.2 pg (28.0-33.3); Mean Corpuscular Volume 105.7 fL (83.0-100.0); Mean Platelet Volume 9.5 fL (9.4-12.4); Monocytes # 0.7 K/mcL (0.0-1.3); Monocytes % 4.9 %; Neutrophils # 12.3 K/mcL (1.6-8.9); Platelet Count 330 K/mcL (140-400); Red Blood Count 3.48 M/mcL (4.19-5.50); Red Cell Distribution Width 12.7 % (11.5-14.5); Segmented Neutrophils % 89.4 %; White Blood Count 13.8 K/mcL (4.3-11.1)
[2020-05-15 04:56] LABS: BUN/Creatinine Ratio 34 (6-26); Blood Urea Nitrogen 36 mg/dL (8-23); Calcium 8.3 mg/dL (8.6-10.3); Carbon Dioxide 32 mEq/L (23-29); Chloride 112 mEq/L (98-107); Glucose 256 mg/dL (70-105); Osmolality,Calculated 325 (280-300); Potassium 4.6 mEq/L (3.5-5.1); Sodium 149 mEq/L (136-145); eGFR For African Americans > 60 (> 60); eGFR For Non-African Americans > 60 (> 60)
[2020-05-15] MEDS: Insulin LISPRO 300 UNITS/3 ML VIAL SQ SCH ×4 (05:53→23:39)
[2020-05-15] MEDS: Dexamethasone 4 MG/ML VIAL IVP SCH (08:32)
[2020-05-15] MEDS: Chlorhexidine Rinse 15 ML MOUTHWASH MM SCH ×2 (08:32→20:58)
[2020-05-15] MEDS: Pantoprazole 40 MG VIAL IVP SCH ×2 (08:33→20:58)
[2020-05-15] MEDS: Aspirin 81 MG TAB.CHEW PO SCH (08:34)
[2020-05-15] MEDS: Insulin DETEMIR 100 UNIT/ML X5UNITS SQ SCH ×2 (08:35→20:59)
[2020-05-15] MEDS: Piperacillin/Tazobactam 3.375 GM in 0.9 % Sodium Chloride Mini Bag 100 ML IVPB SCH ×3 (08:36→23:22)
[2020-05-15] MEDS: Cisatracurium 200 MG in 0.9 % Sodium Chloride 180 ML IVC SCH (11:17)
[2020-05-15] MEDS ORDERED: Furosemide 20 MG/2 ML VIAL IVP ONE (11:55)
[2020-05-15] MEDS: Midazolam HCl 50 MG/100 ML IV.SOLN IVC SCH (15:00)
[2020-05-15] MEDS: Norepinephrine 4 MG/254 ML IV.SOLN IVC SCH (15:10)
[2020-05-15] MEDS: Acetaminophen 325 MG TABLET PO PRN (18:40)
[2020-05-15] MEDS: Remdesivir 100 MG in 0.9 % Sodium Chloride 230 ML IVPB SCH (21:22)
[2020-05-16] MEDS: Ipratropium 1 PUFF INHALER IH SCH ×6 (03:32→23:24)
[2020-05-16] MEDS: Artificial Tears SOLN 15 ML BOTTLE BOTH EYES SCH ×6 (03:42→23:55)
[2020-05-16 04:05] LABS: ABG Base Excess 9 mEq/L (-2 to 3); ABG HCO3 37 mEq/L (21-27); ABG Oxygen Saturation 84 % (95-98); ABG PCO2 73 mmHg (35-45); ABG PH 7.31 pH Units (7.32-7.45); ABG PO2 55 mmHg (85-104); ABG TCO2 39 mEq/L (20-26); Blood Gas VT 450 cc
[2020-05-16 04:18] LABS: VBG Ionized Calcium 1.21 mmol/L (1.15-1.35)
[2020-05-16 04:24] LABS: Basophils % 0.2 %; Hemoglobin 10.4 g/dL (12.9-16.9); Immature Granulocytes % 4.8 % (0-4); Lymphocytes # 0.5 K/mcL (0.6-4.6); Lymphocytes % 4.6 %; Mean Corpuscular HGB Conc 29.7 g/dL (31.6-35.5); Mean Corpuscular Hemoglobin 32.4 pg (28.0-33.3); Mean Platelet Volume 9.7 fL (9.4-12.4); Monocytes # 0.4 K/mcL (0.0-1.3); Monocytes % 4.3 %; Neutrophils # 8.6 K/mcL (1.6-8.9); Nucleated Red Blood Cells 0.2 /100 WBC (0); Platelet Count 293 K/mcL (140-400); Red Blood Count 3.21 M/mcL (4.19-5.50); Red Cell Distribution Width 12.6 % (11.5-14.5); Segmented Neutrophils % 86.1 %
[2020-05-16 04:38] LABS: Alanine Aminotransferase 21 Units/L (7-52); Albumin 2.7 g/dL (3.5-5.7); Albumin/Globulin Ratio 1.1 (1.1-2.2); Alkaline Phosphatase 43 Units/L (34-104); Aspartate Amino Transferase 26 Units/L (13-39); BUN/Creatinine Ratio 33 (6-26); Bilirubin,Total 0.6 mg/dL (0.3-1.0); Blood Urea Nitrogen 34 mg/dL (8-23); C-Reactive Protein 21 mg/L (Less than 10); Calcium 8.5 mg/dL (8.6-10.3); Carbon Dioxide 34 mEq/L (23-29); Chloride 109 mEq/L (98-107); Globulin 2.5 g/dL (2.4-3.5); Glucose 344 mg/dL (70-105); Lactate Dehydrogenase 274 Units/L (140-271); Magnesium 2.1 mg/dL (1.6-2.6); Osmolality,Calculated 329 (280-300); Potassium 5.5 mEq/L (3.5-5.1); Sodium 149 mEq/L (136-145); Total Protein 5.2 g/dL (6.4-8.9); eGFR For African Americans > 60 (> 60); eGFR For Non-African Americans > 60 (> 60)
[2020-05-16 04:55] LABS: Ferritin 276 ng/mL (20-250)
[2020-05-16] MEDS: Insulin LISPRO 300 UNITS/3 ML VIAL SQ SCH ×3 (05:35→17:59)
[2020-05-16] MEDS: Aspirin 81 MG TAB.CHEW PO SCH (07:47)
[2020-05-16] MEDS: Chlorhexidine Rinse 15 ML MOUTHWASH MM SCH ×2 (07:48→20:18)
[2020-05-16] MEDS: Piperacillin/Tazobactam 3.375 GM in 0.9 % Sodium Chloride Mini Bag 100 ML IVPB SCH ×3 (07:48→23:55)
[2020-05-16] MEDS: Pantoprazole 40 MG VIAL IVP SCH ×2 (07:49→20:18)
[2020-05-16] MEDS: Dexamethasone 4 MG/ML VIAL IVP SCH (07:49)
[2020-05-16] MEDS: Insulin DETEMIR 100 UNIT/ML X5UNITS SQ SCH ×2 (07:52→21:27)
[2020-05-16] MEDS ORDERED: Furosemide 20 MG/2 ML VIAL IVP ONE (09:25)
[2020-05-16] MEDS ORDERED: Insulin DETEMIR 100 UNIT/ML X5UNITS SQ SCH (09:30)
[2020-05-16] MEDS: Dexmedetomidine HCl 400 MCG/100 ML MLS IVC SCH (10:34)
[2020-05-16] MEDS: Heparin 25,000 UNIT/250 ML D5W 25,000 UNIT/250 ML IV.SOLN IVC SCH (10:35)
[2020-05-16] MEDS: FentaNYL (PF) 2,500 MCG/50 ML IV.SOLN IVC SCH ×2 (10:37→18:54)
[2020-05-16] MEDS: Cisatracurium 200 MG in 0.9 % Sodium Chloride 180 ML IVC SCH (12:30)
[2020-05-16 13:17] LABS: Alanine Aminotransferase 24 Units/L (7-52); Albumin 2.6 g/dL (3.5-5.7); Alkaline Phosphatase 41 Units/L (34-104); Aspartate Amino Transferase 31 Units/L (13-39); BUN/Creatinine Ratio 36 (6-26); Bilirubin,Total 0.6 mg/dL (0.3-1.0); Blood Urea Nitrogen 33 mg/dL (8-23); Calcium 8.5 mg/dL (8.6-10.3); Carbon Dioxide 38 mEq/L (23-29); Chloride 108 mEq/L (98-107); Globulin 2.5 g/dL (2.4-3.5); Glucose 366 mg/dL (70-105); Magnesium 1.8 mg/dL (1.6-2.6); Osmolality,Calculated 328 (280-300); Potassium 5.4 mEq/L (3.5-5.1); Sodium 148 mEq/L (136-145); Total Protein 5.1 g/dL (6.4-8.9); eGFR For African Americans > 60 (> 60); eGFR For Non-African Americans > 60 (> 60)
[2020-05-16 14:39] LABS: VBG Ionized Calcium 1.22 mmol/L (1.15-1.35)
[2020-05-16] MEDS: Norepinephrine 4 MG/254 ML IV.SOLN IVC SCH (15:37)
[2020-05-16] MEDS: Midazolam HCl 50 MG/100 ML IV.SOLN IVC SCH (16:41)
[2020-05-16] MEDS: Remdesivir 100 MG in 0.9 % Sodium Chloride 230 ML IVPB SCH (21:27)
[2020-05-17] MEDS: Insulin LISPRO 300 UNITS/3 ML VIAL SQ SCH ×6 (00:09→23:28)
[2020-05-17] MEDS: Artificial Tears SOLN 15 ML BOTTLE BOTH EYES SCH ×6 (03:39→23:27)
[2020-05-17] MEDS: Ipratropium 1 PUFF INHALER IH SCH ×6 (04:02→23:51)
[2020-05-17 04:09] LABS: Basophils % 0.3 %; Hematocrit 34.8 % (37.5-50.1); Hemoglobin 10.7 g/dL (12.9-16.9); Immature Granulocytes % 2.8 % (0-4); Lymphocytes # 0.7 K/mcL (0.6-4.6); Lymphocytes % 6.5 %; Mean Corpuscular HGB Conc 30.7 g/dL (31.6-35.5); Mean Corpuscular Hemoglobin 32.4 pg (28.0-33.3); Mean Corpuscular Volume 105.5 fL (83.0-100.0); Mean Platelet Volume 9.6 fL (9.4-12.4); Monocytes # 0.4 K/mcL (0.0-1.3); Monocytes % 3.3 %; Neutrophils # 9.4 K/mcL (1.6-8.9); Nucleated Red Blood Cells 0.2 /100 WBC (0); Platelet Count 287 K/mcL (140-400); Red Cell Distribution Width 12.5 % (11.5-14.5); Segmented Neutrophils % 87.1 %; White Blood Count 10.8 K/mcL (4.3-11.1)
[2020-05-17 04:17] LABS: ABG Base Excess 11 mEq/L (-2 to 3); ABG HCO3 37 mEq/L (21-27); ABG Oxygen Saturation 89 % (95-98); ABG PCO2 61 mmHg (35-45); ABG PO2 59 mmHg (85-104); ABG TCO2 39 mEq/L (20-26); Blood Gas Modality ASSIST CONTROL; Blood Gas VT 500 cc
[2020-05-17] MEDS: FentaNYL (PF) 2,500 MCG/50 ML IV.SOLN IVC SCH ×2 (04:22→13:53)
[2020-05-17 04:28] LABS: Alanine Aminotransferase 30 Units/L (7-52); Albumin 2.7 g/dL (3.5-5.7); Alkaline Phosphatase 43 Units/L (34-104); Aspartate Amino Transferase 44 Units/L (13-39); BUN/Creatinine Ratio 37 (6-26); Bilirubin,Total 0.5 mg/dL (0.3-1.0); Blood Urea Nitrogen 34 mg/dL (8-23); Carbon Dioxide 38 mEq/L (23-29); Chloride 105 mEq/L (98-107); Globulin 2.6 g/dL (2.4-3.5); Glucose 314 mg/dL (70-105); Osmolality,Calculated 326 (280-300); Potassium 5.4 mEq/L (3.5-5.1); Sodium 148 mEq/L (136-145); Total Protein 5.3 g/dL (6.4-8.9); eGFR For African Americans > 60 (> 60); eGFR For Non-African Americans > 60 (> 60)
[2020-05-17 04:30] LABS: Magnesium 1.8 mg/dL (1.6-2.6); Phosphorous 3.6 mg/dL (2.7-4.5)
[2020-05-17] MEDS: Dexamethasone 4 MG/ML VIAL IVP SCH (08:05)
[2020-05-17] MEDS: Aspirin 81 MG TAB.CHEW PO SCH (08:05)
[2020-05-17] MEDS: Chlorhexidine Rinse 15 ML MOUTHWASH MM SCH ×2 (08:05→19:49)
[2020-05-17] MEDS: Piperacillin/Tazobactam 3.375 GM in 0.9 % Sodium Chloride Mini Bag 100 ML IVPB SCH ×3 (08:05→23:28)
[2020-05-17] MEDS: Insulin DETEMIR 100 UNIT/ML X5UNITS SQ SCH ×2 (08:08→19:50)
[2020-05-17] MEDS: Dexmedetomidine HCl 400 MCG/100 ML MLS IVC SCH (08:11)
[2020-05-17] MEDS: Pantoprazole 40 MG VIAL IVP SCH ×2 (08:12→19:49)
[2020-05-17] MEDS ORDERED: Furosemide 20 MG/2 ML VIAL IVP ONE (09:26)
[2020-05-17] MEDS ORDERED: Insulin DETEMIR 100 UNIT/ML X5UNITS SQ SCH (09:30)
[2020-05-17] MEDS: Cisatracurium 200 MG in 0.9 % Sodium Chloride 180 ML IVC SCH (12:15)
[2020-05-17] MEDS: Norepinephrine 4 MG/254 ML IV.SOLN IVC SCH (12:16)
[2020-05-17] MEDS: Heparin 25,000 UNIT/250 ML D5W 25,000 UNIT/250 ML IV.SOLN IVC SCH (12:24)
[2020-05-17] MEDS ORDERED: Insulin DETEMIR 100 UNIT/ML X5UNITS SQ ONE (13:00)
[2020-05-17] MEDS ORDERED: 0.9 % Sodium Chloride 500 ML ONE (17:05)
[2020-05-17] MEDS: Midazolam HCl 50 MG/100 ML IV.SOLN IVC SCH (19:48)
[2020-05-17] MEDS: Remdesivir 100 MG in 0.9 % Sodium Chloride 230 ML IVPB SCH (21:14)
[2020-05-18] MEDS: FentaNYL (PF) 2,500 MCG/50 ML IV.SOLN IVC SCH ×3 (00:28→17:01)
[2020-05-18] MEDS: Ipratropium 1 PUFF INHALER IH SCH ×6 (03:18→23:48)
[2020-05-18 03:48] LABS: ABG Base Excess 14 mEq/L (-2 to 3); ABG HCO3 41 mEq/L (21-27); ABG Oxygen Saturation 87 % (95-98); ABG PCO2 67 mmHg (35-45); ABG PO2 56 mmHg (85-104); ABG TCO2 44 mEq/L (20-26); Blood Gas Modality ASSIST CONTROL; Blood Gas VT 550 cc
[2020-05-18 04:19] LABS: Basophils # 0.1 K/mcL (0.0-0.2); Basophils % 0.4 %; Eosinophils % 0.2 %; Hematocrit 34.5 % (37.5-50.1); Hemoglobin 10.7 g/dL (12.9-16.9); Immature Granulocytes % 4.5 % (0-4); Lymphocytes # 0.6 K/mcL (0.6-4.6); Mean Corpuscular Hemoglobin 32.2 pg (28.0-33.3); Mean Corpuscular Volume 103.9 fL (83.0-100.0); Mean Platelet Volume 9.8 fL (9.4-12.4); Monocytes # 0.5 K/mcL (0.0-1.3); Monocytes % 3.6 %; Neutrophils # 10.6 K/mcL (1.6-8.9); Platelet Count 274 K/mcL (140-400); Red Blood Count 3.32 M/mcL (4.19-5.50); Red Cell Distribution Width 12.5 % (11.5-14.5); Segmented Neutrophils % 86.3 %; White Blood Count 12.3 K/mcL (4.3-11.1)
[2020-05-18 04:29] LABS: VBG Ionized Calcium 1.17 mmol/L (1.15-1.35)
[2020-05-18] MEDS: Artificial Tears SOLN 15 ML BOTTLE BOTH EYES SCH ×5 (04:39→20:19)
[2020-05-18] MEDS: Insulin LISPRO 300 UNITS/3 ML VIAL SQ SCH ×5 (04:40→20:19)
[2020-05-18 04:46] LABS: Magnesium 1.8 mg/dL (1.6-2.6); Phosphorous 4.4 mg/dL (2.7-4.5)
[2020-05-18 04:53] LABS: Alanine Aminotransferase 40 Units/L (7-52); Albumin 2.8 g/dL (3.5-5.7); Alkaline Phosphatase 47 Units/L (34-104); Aspartate Amino Transferase 48 Units/L (13-39); BUN/Creatinine Ratio 41 (6-26); Bilirubin,Total 0.6 mg/dL (0.3-1.0); Blood Urea Nitrogen 37 mg/dL (8-23); Calcium 9.1 mg/dL (8.6-10.3); Carbon Dioxide 43 mEq/L (23-29); Chloride 98 mEq/L (98-107); Globulin 2.7 g/dL (2.4-3.5); Glucose 282 mg/dL (70-105); Osmolality,Calculated 315 (280-300); Potassium 5.3 mEq/L (3.5-5.1); Sodium 143 mEq/L (136-145); Total Protein 5.5 g/dL (6.4-8.9); eGFR For African Americans > 60 (> 60); eGFR For Non-African Americans > 60 (> 60)
[2020-05-18] MEDS: Aspirin 81 MG TAB.CHEW PO SCH (07:58)
[2020-05-18] MEDS: Piperacillin/Tazobactam 3.375 GM in 0.9 % Sodium Chloride Mini Bag 100 ML IVPB SCH ×2 (07:58→15:13)
[2020-05-18] MEDS: Dexamethasone 4 MG/ML VIAL IVP SCH (07:59)
[2020-05-18] MEDS: Dexmedetomidine HCl 400 MCG/100 ML MLS IVC SCH (08:00)
[2020-05-18] MEDS: Chlorhexidine Rinse 15 ML MOUTHWASH MM SCH ×2 (08:00→21:14)
[2020-05-18] MEDS: Pantoprazole 40 MG VIAL IVP SCH ×2 (08:01→21:14)
[2020-05-18] MEDS: Norepinephrine 4 MG/254 ML IV.SOLN IVC SCH (08:01)
[2020-05-18] MEDS: Cisatracurium 200 MG in 0.9 % Sodium Chloride 180 ML IVC SCH (08:01)
[2020-05-18] MEDS: Insulin DETEMIR 100 UNIT/ML X5UNITS SQ SCH ×2 (08:14→20:23)
[2020-05-18] MEDS ORDERED: Furosemide 20 MG/2 ML VIAL IVP ONE (09:12)
[2020-05-18] MEDS ORDERED: Insulin DETEMIR 100 UNIT/ML X5UNITS SQ ONE (10:00)
[2020-05-18] MEDS: Heparin 25,000 UNIT/250 ML D5W 25,000 UNIT/250 ML IV.SOLN IVC SCH (13:03)
[2020-05-18] MEDS: Remdesivir 100 MG in 0.9 % Sodium Chloride 230 ML IVPB SCH (21:14)
[2020-05-19] MEDS: Insulin LISPRO 300 UNITS/3 ML VIAL SQ SCH ×7 (00:50→23:54)
[2020-05-19] MEDS: Piperacillin/Tazobactam 3.375 GM in 0.9 % Sodium Chloride Mini Bag 100 ML IVPB SCH ×4 (00:54→23:57)
[2020-05-19] MEDS: Artificial Tears SOLN 15 ML BOTTLE BOTH EYES SCH ×7 (00:55→23:54)
[2020-05-19] MEDS: Ipratropium 1 PUFF INHALER IH SCH ×6 (03:38→23:45)
[2020-05-19 04:00] LABS: ABG Base Excess 13 mEq/L (-2 to 3); ABG HCO3 41 mEq/L (21-27); ABG Oxygen Saturation 95 % (95-98); ABG PCO2 65 mmHg (35-45); ABG PH 7.41 pH Units (7.32-7.45); ABG PO2 78 mmHg (85-104); ABG TCO2 43 mEq/L (20-26); Blood Gas Modality ASSIST CONTROL; Blood Gas VT 550 cc
[2020-05-19 04:08] LABS: VBG Ionized Calcium 1.14 mmol/L (1.15-1.35)
[2020-05-19 04:22] LABS: Basophils # 0.1 K/mcL (0.0-0.2); Basophils % 0.4 %; Eosinophils % 0.1 %; Hematocrit 36.3 % (37.5-50.1); Hemoglobin 11.3 g/dL (12.9-16.9); Lymphocytes # 0.8 K/mcL (0.6-4.6); Lymphocytes % 5.3 %; Mean Corpuscular HGB Conc 31.1 g/dL (31.6-35.5); Mean Corpuscular Hemoglobin 32.5 pg (28.0-33.3); Mean Corpuscular Volume 104.3 fL (83.0-100.0); Mean Platelet Volume 10.1 fL (9.4-12.4); Monocytes # 0.6 K/mcL (0.0-1.3); Monocytes % 4.4 %; Neutrophils # 12.1 K/mcL (1.6-8.9); Nucleated Red Blood Cells 0.4 /100 WBC (0); Platelet Count 268 K/mcL (140-400); Red Blood Count 3.48 M/mcL (4.19-5.50); Red Cell Distribution Width 12.6 % (11.5-14.5); Segmented Neutrophils % 84.8 %; White Blood Count 14.2 K/mcL (4.3-11.1)
[2020-05-19 04:31] LABS: Alanine Aminotransferase 46 Units/L (7-52); Albumin 2.8 g/dL (3.5-5.7); Alkaline Phosphatase 49 Units/L (34-104); Aspartate Amino Transferase 57 Units/L (13-39); BUN/Creatinine Ratio 41 (6-26); Bilirubin,Total 0.6 mg/dL (0.3-1.0); Blood Urea Nitrogen 39 mg/dL (8-23); Carbon Dioxide 42 mEq/L (23-29); Chloride 95 mEq/L (98-107); Globulin 2.9 g/dL (2.4-3.5); Glucose 274 mg/dL (70-105); Magnesium 1.9 mg/dL (1.6-2.6); Osmolality,Calculated 313 (280-300); Phosphorous 3.8 mg/dL (2.7-4.5); Potassium 4.8 mEq/L (3.5-5.1); Sodium 142 mEq/L (136-145); Total Protein 5.7 g/dL (6.4-8.9); eGFR For African Americans > 60 (> 60); eGFR For Non-African Americans > 60 (> 60)
[2020-05-19] MEDS: FentaNYL (PF) 2,500 MCG/50 ML IV.SOLN IVC SCH ×2 (04:50→18:19)
[2020-05-19] MEDS: Dexmedetomidine HCl 400 MCG/100 ML MLS IVC SCH (07:48)
[2020-05-19] MEDS: Dexamethasone 4 MG/ML VIAL IVP SCH (07:59)
[2020-05-19] MEDS: Aspirin 81 MG TAB.CHEW PO SCH (07:59)
[2020-05-19] MEDS: Chlorhexidine Rinse 15 ML MOUTHWASH MM SCH ×2 (08:00→19:48)
[2020-05-19] MEDS: Pantoprazole 40 MG VIAL IVP SCH ×2 (08:00→19:49)
[2020-05-19] MEDS: Insulin DETEMIR 100 UNIT/ML X5UNITS SQ SCH ×2 (08:41→19:50)
[2020-05-19] MEDS ORDERED: Heparin 25,000UNIT/250ML 1/2NS 25,000 UNIT/250 ML IV.SOLN IVC SCH (08:45)
[2020-05-19] MEDS: Midazolam HCl 50 MG/100 ML IV.SOLN IVC SCH (11:34)
[2020-05-19] MEDS: Norepinephrine 4 MG/254 ML IV.SOLN IVC SCH (12:15)
[2020-05-19] MEDS ORDERED: Water for inj. (sterile) 20 ML VIAL IV ONE (21:00)
[2020-05-19] MEDS: Remdesivir 100 MG in 0.9 % Sodium Chloride 230 ML IVPB SCH (21:06)
[2020-05-20] MEDS: Ipratropium 1 PUFF INHALER IH SCH ×6 (04:07→23:45)
[2020-05-20] MEDS: Artificial Tears SOLN 15 ML BOTTLE BOTH EYES SCH ×6 (04:20→23:43)
[2020-05-20] MEDS: Insulin LISPRO 300 UNITS/3 ML VIAL SQ SCH ×5 (04:20→20:26)
[2020-05-20 04:41] LABS: Basophils # 0.1 K/mcL (0.0-0.2); Basophils % 0.3 %; Eosinophils % 0.1 %; Hematocrit 38.7 % (37.5-50.1); Immature Granulocytes % 4.7 % (0-4); Lymphocytes # 0.8 K/mcL (0.6-4.6); Mean Corpuscular Hemoglobin 32.9 pg (28.0-33.3); Monocytes # 0.9 K/mcL (0.0-1.3); Monocytes % 4.3 %; Neutrophils # 17.5 K/mcL (1.6-8.9); Nucleated Red Blood Cells 0.6 /100 WBC (0); Platelet Count 257 K/mcL (140-400); Red Blood Count 3.65 M/mcL (4.19-5.50); Red Cell Distribution Width 12.8 % (11.5-14.5); Segmented Neutrophils % 86.6 %; White Blood Count 20.2 K/mcL (4.3-11.1)
[2020-05-20 04:46] LABS: ABG Base Excess 8 mEq/L (-2 to 3); ABG HCO3 37 mEq/L (21-27); ABG Oxygen Saturation 92 % (95-98); ABG PCO2 71 mmHg (35-45); ABG PH 7.32 pH Units (7.32-7.45); ABG PO2 73 mmHg (85-104); ABG TCO2 39 mEq/L (20-26); Blood Gas VT 550 cc
[2020-05-20 04:58] LABS: BUN/Creatinine Ratio 36 (6-26); Blood Urea Nitrogen 37 mg/dL (8-23); Calcium 8.9 mg/dL (8.6-10.3); Carbon Dioxide 37 mEq/L (23-29); Chloride 94 mEq/L (98-107); Glucose 229 mg/dL (70-105); Osmolality,Calculated 302 (280-300); Potassium 4.5 mEq/L (3.5-5.1); Sodium 138 mEq/L (136-145); eGFR For African Americans > 60 (> 60); eGFR For Non-African Americans > 60 (> 60)
[2020-05-20] MEDS: FentaNYL (PF) 2,500 MCG/50 ML IV.SOLN IVC SCH ×2 (06:31→16:53)
[2020-05-20] MEDS: Dexamethasone 4 MG/ML VIAL IVP SCH (09:32)
[2020-05-20] MEDS: Piperacillin/Tazobactam 3.375 GM in 0.9 % Sodium Chloride Mini Bag 100 ML IVPB SCH ×3 (09:33→23:41)
[2020-05-20] MEDS: Aspirin 81 MG TAB.CHEW PO SCH (09:33)
[2020-05-20] MEDS: Pantoprazole 40 MG VIAL IVP SCH ×2 (09:33→20:25)
[2020-05-20] MEDS: Chlorhexidine Rinse 15 ML MOUTHWASH MM SCH ×2 (09:33→20:25)
[2020-05-20] MEDS: Insulin DETEMIR 100 UNIT/ML X5UNITS SQ SCH ×2 (10:16→20:25)
[2020-05-20] MEDS: Heparin 25,000UNIT/250ML 1/2NS 25,000 UNIT/250 ML IV.SOLN IVC SCH (14:12)
[2020-05-20] MEDS: Dexmedetomidine HCl 400 MCG/100 ML MLS IVC SCH (19:49)
[2020-05-20] MEDS: Norepinephrine 4 MG/254 ML IV.SOLN IVC SCH (19:50)
[2020-05-20] MEDS: Midazolam HCl 50 MG/100 ML IV.SOLN IVC SCH (19:50)
[2020-05-21] MEDS: Insulin LISPRO 300 UNITS/3 ML VIAL SQ SCH ×5 (00:07→16:12)
[2020-05-21] MEDS: Ipratropium 1 PUFF INHALER IH SCH ×5 (03:53→20:04)
[2020-05-21 04:14] LABS: Basophils # 0.1 K/mcL (0.0-0.2); Basophils % 0.4 %; Eosinophils % 0.1 %; Hematocrit 37.4 % (37.5-50.1); Hemoglobin 11.4 g/dL (12.9-16.9); Lymphocytes # 0.6 K/mcL (0.6-4.6); Lymphocytes % 4.2 %; Mean Corpuscular HGB Conc 30.5 g/dL (31.6-35.5); Mean Corpuscular Volume 105.1 fL (83.0-100.0); Mean Platelet Volume 10.1 fL (9.4-12.4); Monocytes # 0.6 K/mcL (0.0-1.3); Monocytes % 4.5 %; Neutrophils # 11.9 K/mcL (1.6-8.9); Nucleated Red Blood Cells 0.6 /100 WBC (0); Platelet Count 221 K/mcL (140-400); Red Blood Count 3.56 M/mcL (4.19-5.50); Red Cell Distribution Width 13.1 % (11.5-14.5); Segmented Neutrophils % 85.8 %; White Blood Count 13.9 K/mcL (4.3-11.1)
[2020-05-21 04:23] LABS: Alanine Aminotransferase 38 Units/L (7-52); Albumin 2.7 g/dL (3.5-5.7); Albumin/Globulin Ratio 0.9 (1.1-2.2); Alkaline Phosphatase 54 Units/L (34-104); Aspartate Amino Transferase 39 Units/L (13-39); BUN/Creatinine Ratio 41 (6-26); Bilirubin,Direct 0.2 mg/dL (0.0-0.2); Bilirubin,Indirect 0.3 mg/dL (0.0-1.0); Bilirubin,Total 0.5 mg/dL (0.3-1.0); Blood Urea Nitrogen 36 mg/dL (8-23); C-Reactive Protein 64 mg/L (Less than 10); Calcium 9.1 mg/dL (8.6-10.3); Carbon Dioxide 36 mEq/L (23-29); Chloride 98 mEq/L (98-107); Glucose 217 mg/dL (70-105); Magnesium 1.9 mg/dL (1.6-2.6); Osmolality,Calculated 305 (280-300); Phosphorous 3.4 mg/dL (2.7-4.5); Potassium 4.8 mEq/L (3.5-5.1); Sodium 140 mEq/L (136-145); Total Protein 5.7 g/dL (6.4-8.9); eGFR For African Americans > 60 (> 60); eGFR For Non-African Americans > 60 (> 60)
[2020-05-21] MEDS: Artificial Tears SOLN 15 ML BOTTLE BOTH EYES SCH ×5 (04:26→20:06)
[2020-05-21] MEDS: Heparin 25,000UNIT/250ML 1/2NS 25,000 UNIT/250 ML IV.SOLN IVC SCH ×2 (04:28→16:13)
[2020-05-21 04:41] LABS: Ferritin 290 ng/mL (20-250)
[2020-05-21 04:42] LABS: ABG Base Excess 10 mEq/L (-2 to 3); ABG HCO3 38 mEq/L (21-27); ABG Oxygen Saturation 89 % (95-98); ABG PCO2 70 mmHg (35-45); ABG PH 7.34 pH Units (7.32-7.45); ABG PO2 63 mmHg (85-104); ABG TCO2 40 mEq/L (20-26); Blood Gas VT 550 cc
[2020-05-21] MEDS ORDERED: 0.9 % Sodium Chloride 500 ML ONE (05:24)
[2020-05-21] MEDS: FentaNYL (PF) 2,500 MCG/50 ML IV.SOLN IVC SCH ×2 (05:36→16:14)
[2020-05-21] MEDS: Insulin DETEMIR 100 UNIT/ML X5UNITS SQ SCH (08:45)
[2020-05-21] MEDS: Pantoprazole 40 MG VIAL IVP SCH (11:59)
[2020-05-21] MEDS: Chlorhexidine Rinse 15 ML MOUTHWASH MM SCH (11:59)
[2020-05-21] MEDS: Piperacillin/Tazobactam 3.375 GM in 0.9 % Sodium Chloride Mini Bag 100 ML IVPB SCH ×2 (11:59→16:17)
[2020-05-21] MEDS: Dexamethasone 4 MG/ML VIAL IVP SCH (11:59)
[2020-05-21] MEDS: Dexmedetomidine HCl 400 MCG/100 ML MLS IVC SCH (12:02)
[2020-05-21] MEDS: Aspirin 81 MG TAB.CHEW PO SCH (12:02)
[2020-05-21] MEDS: Norepinephrine 4 MG/254 ML IV.SOLN IVC SCH (12:37)
[2020-05-21] MEDS: Midazolam HCl 50 MG/100 ML IV.SOLN IVC SCH (13:20)
[2020-05-21] MEDS: Acetaminophen 325 MG TABLET PO PRN (16:13)
[2020-05-21] MEDS ORDERED: *HR* Metoprolol 5 MG/5 ML VIAL IVP ONE ×2 (17:30→17:34)
[2020-05-21 20:04] VITALS: BP 119/70
== END 2020-05-21 20:27 | disposition expired | DRG 870 ==
LOC: 2NENU → SUATTDRO 05:00
PROVIDERS: ADMIT Family Medicine; ATTEND Internal Medicine